=== PATIENT | female | born 1965 | race Caucasian/White ===

== ENCOUNTER → 2018-11-07 | Outpatient (CLI) | payer BC ==
[~2018-11-07] MED LIST: GADOTERATE 7.5 MMOL/15ML VIAL. IVP ONE
--- NOTE | 2018-11-07 12:47 | RAD ---
EXAMINATION: Magnetic resonance imaging (MRI) of the cervical spine with and without contrast 11/07/2018 10:30 AM HISTORY: Weakness and stiffness of all extremities. TECHNIQUE: Multiplanar multi-weighted MRI of the cervical spine was performed with and without intravenous contrast using the standard cervical spine protocol. Contrast information: 15 mL gadolinium based contrast was administered intravenously COMPARISON: None available. FINDINGS: There is grade 1-grade 2 anterolisthesis of C4 on C5. There is minimal anterolisthesis of T1 on T2, T2 on T3 and T3 and T4. Vertebral body heights are maintained. There is moderate disc height loss at C4-C5 and C6-C7. Mild disc height loss is identified at C3-C4 and C5-C6. There is a 7 x 5 x 8 mm rim-enhancing lesion involving the right hemicord at the C5 vertebral level with associated T2 signal hyperintensity focally in more diffuse T2 signal alteration extending craniocaudally to the mid C4 vertebral level and to the superior endplate of C6. Posterior fossa is normal in appearance. No enhancing lesions are identified in the brainstem. Skull base is intact. Craniocervical junction is normal. Atlantoaxial articulation is normal. There is no prevertebral soft tissue swelling. No paraspinal soft tissue mass is identified. C2-C3: There is a disc bulge asymmetric to the right with central annular fissure. There is mild left facet arthropathy. No significant uncovertebral joint disease. No neuroforaminal or spinal canal stenosis. C3-C4: There is a posterior disc osteophyte complex with central disc protrusion. There is mild left facet arthropathy. No significant uncovertebral joint disease. Mild left neuroforaminal stenosis. No spinal canal stenosis. C4-C5: There is a posterior disc osteophyte complex with central disc protrusion. There is moderate facet arthropathy. Mild uncovertebral joint disease. Moderate bilateral neuroforaminal stenosis. Moderate to severe spinal canal stenosis, exacerbated by ligamentum flavum infolding. There is cord signal alteration at this level C5-C6: There is posterior disc osteophyte complex with central disc protrusion. There is mild facet and uncovertebral joint disease. There is mild bilateral neuroforaminal stenosis. Mild spinal canal stenosis without compression of the cord. C6-C7: There is posterior disc osteophyte complex with central disc protrusion. Moderate left and mild right facet arthropathy. Mild uncovertebral joint disease. Mild/moderate left neuroforaminal stenosis. Mild spinal canal stenosis. C7-T1: Disc is normal in configuration. There is mild to moderate facet arthropathy. No neuroforaminal or spinal canal stenosis. IMPRESSION: 1. There is grade 1-grade 2 anterolisthesis of C4 on C5 with posterior disc osteophyte complex and ligamentum flavum infolding resulting in moderate to severe spinal canal stenosis. Findings are identified at the level of edema and enhancement and association with enhancement/edema is indeterminate. Primary consideration may be given for myelopathy secondary to disc herniation, mimicking intramedullary inflammation/tumor. 2. There is focal cord signal alteration centered at the C5 vertebral level with enhancement of the right hemicord measuring approximately 7 x 5 x 8 mm (AP by transverse by craniocaudal). This is associated with extensive T2 signal alteration extending craniocaudally from C4 through C6. Alternate considerations would include demyelinating disease such as ADEM (acute disseminated encephalomyelitis) or multiple sclerosis. Transverse myelitis remains in the differential. Findings could represent neoplastic etiology such as an astrocytoma or hemangioblastoma. Critical result: Findings discussed with SAMARA CANNON at 11/07/2018 12:26 PM. FOR INTERNAL CODING PURPOSES RESULT CODE: (C) Electronically signed by: aRdha Myers MD (11/07/2018 12:44 PM) [email or web address]
== END | disposition home or self-care (01) ==
LOC: MRI 09:50
PROVIDERS: ATTEND Psychiatry & Neurology Neurology
DX: M50.21 Other cervical disc displacement, high cervical region (principal); M48.02 Spinal stenosis, cervical region; M25.78 Osteophyte, vertebrae; M12.88 Other specific arthropathies, not elsewhere classified, other specified site
CPT/HCPCS: 72156; A9575